=== PATIENT | female | born 1980 | race Caucasian/White ===

== ENCOUNTER → 2017-05-22 | Outpatient (CLI) | payer BC ==
[~2017-05-22] MED LIST: BCP TD; NEXIUM10 MG/Pack PO
== END ==
LOC: COL.RAD 14:13
DX: M16.12 Unilateral primary osteoarthritis, left hip (principal); G89.29 Other chronic pain
CPT/HCPCS: A9585; Q9967

== ENCOUNTER → 2017-06-09 | Outpatient (CLI) | payer BC | LOC: COL.RAD 15:38 | DX: M16.12 Unilateral primary osteoarthritis, left hip (principal) | CPT/HCPCS: J3301; Q9967 ==

== ENCOUNTER → 2017-11-18 | Outpatient (CLI) | payer BC | LOC: COL.RAD 13:00 | DX: M25.552 Pain in left hip (principal) | CPT/HCPCS: J3301; Q9967 ==

== ENCOUNTER → 2018-04-01 | Outpatient (CLI) | payer BC | LOC: COL.RAD 14:45 | DX: M25.552 Pain in left hip (principal) | CPT/HCPCS: J3301; Q9967 ==

== ENCOUNTER 2019-01-01 19:42 | Emergency (ER) | payer BC ==
[~2019-01-01] VITALS: Ht 162.6 cm; Wt 86.4 kg
[2019-01-01 19:46] VITALS: BP 132/89; TEMP 97.3
[2019-01-01] MEDS ORDERED: NORCO 325 MG-51 TAB PO (21:20)
[2019-01-01] MEDS ORDERED: FLAGYL500 MG PO (21:20)
[2019-01-01] MEDS ORDERED: DOXYCYCLINE HY100 MG PO (21:20)
[2019-01-01 21:43] VITALS: PULSE 73
[2019-01-01] MEDS ORDERED: COZAAR 50MG50 MG/TAB PO (21:44)
[2019-01-01] MEDS ORDERED: HCTZ 25MG TAB25 MG PO (21:44)
== END 2019-01-01 21:44 | disposition home or self-care (01) ==
LOC: COL.ER 19:42
DX: S61.233A Puncture wound without foreign body of left middle finger without damage to nail, initial encounter (principal); I10 Essential (primary) hypertension; K21.9 Gastro-esophageal reflux disease without esophagitis; Z23 Encounter for immunization; Z88.1 Allergy status to other antibiotic agents; W54.0XXA Bitten by dog, initial encounter; Y92.009 Unspecified place in unspecified non-institutional (private) residence as the place of occurrence of the external cause

== ENCOUNTER → 2019-08-11 | Outpatient (CLI) | payer OTHER ==
[~2019-08-11] MED LIST changes: +COZAAR 50MG50 MG/TAB PO; +DOXYCYCLINE HY100 MG PO; +FLAGYL500 MG PO; +HCTZ 25MG TAB25 MG PO; +NORCO 325 MG-51 TAB PO
== END ==
LOC: COL.RAD 15:51
DX: M25.552 Pain in left hip (principal)
CPT/HCPCS: J3301; Q9967

== ENCOUNTER → 2020-04-26 | Outpatient (CLI) | payer OTHER | LOC: COL.RAD 15:41 | DX: M25.552 Pain in left hip (principal) | CPT/HCPCS: J3301; Q9967 ==

== ENCOUNTER → 2020-05-14 | Outpatient (CLI) | payer OTHER | LOC: COL.LAB 10:48 | DX: Z20.828 Contact with and (suspected) exposure to other viral communicable diseases (principal) ==

== ENCOUNTER → 2020-07-26 | Outpatient (CLI) | payer OTHER | LOC: COL.RAD 07:55 | DX: S73.102A Unspecified sprain of left hip, initial encounter (principal) | CPT/HCPCS: A9585; J3301; Q9967 ==

== ENCOUNTER 2021-01-20 22:57 | Emergency (ER) | payer OTHER ==
[~2021-01-20] VITALS: Ht 162.6 cm; Wt 90.0 kg
[2021-01-20 23:06] VITALS: BP 128/94; PULSE 83; TEMP 98
[2021-01-21] MEDS ORDERED: DOXYCYCLINE 10100 MG PO (00:50)
== END 2021-01-21 01:05 | disposition home or self-care (01) ==
LOC: COL.ER 22:57
DX: S61.213A Laceration without foreign body of left middle finger without damage to nail, initial encounter (principal); Z88.0 Allergy status to penicillin; W54.0XXA Bitten by dog, initial encounter

== ENCOUNTER → 2021-01-30 | Outpatient (CLI) | payer OTHER ==
[~2021-01-30] MED LIST changes: +DOXYCYCLINE 10100 MG PO
[2021-01-30 06:45] VITALS: BP 111/87; PULSE 81; TEMP 97.5
== END ==
LOC: COL.ER 06:41 → EDSTATUS 06:59
DX: Z48.02 Encounter for removal of sutures (principal)